=== PATIENT | female | born 1940 | race Caucasian/White ===

== ENCOUNTER → 2018-07-14 15:02 | Outpatient (CLI) | payer MEDICARE, MEDICAID, SELFPAY | PROVIDERS: PCP Internal Medicine Adolescent Medicine; Visit Provider Internal Medicine Adolescent Medicine | DX: E78.5 Hyperlipidemia, unspecified (principal); I10 Essential (primary) hypertension; M81.8 Other osteoporosis without current pathological fracture ==

== ENCOUNTER → 2018-07-15 07:57 | Outpatient (CLI) | payer MEDICARE, MEDICAID, SELFPAY ==
[2018-07-15 09:30] LABS: Anion Gap 11.2 mEq/L (5-15); Blood Urea Nitrogen 9 mg/dL (7-18); Calcium 8.1 mg/dL (8.5-10.1); Carbon Dioxide 29 mmol/L (21.0-32.0); Chloride 108 mmol/L (98-107); Chol/HDL Ratio 1.9 (1-3.5); Cholesterol 123 mg/dL (140-200); Creatinine,Serum 0.52 mg/dL (0.55-1.02); Estimated Glomerular Filt Rate 114 ml/min (>60); GFR (African American) 138 ML/MIN (>60); Glucose 93 mg/dL (74-106); HDL Cholesterol 66 mg/dL (29-89); LDL Cholesterol 52 mg/dL (0-130); Potassium 4.2 mmoL/L (3.5-5.1); Sodium 144 mmol/L (136-145); Triglycerides 27 mg/dL (30-200); VLDL Cholesterol 5 mg/dL (0-40)
[2018-07-17 07:53] LABS: Vitamin D 25 Hydroxy 38.9 ng/mL (30.0-100.0)
== END ==
PROVIDERS: PCP Internal Medicine Adolescent Medicine; Visit Provider Internal Medicine Adolescent Medicine
DX: E78.5 Hyperlipidemia, unspecified (principal); I10 Essential (primary) hypertension; M81.8 Other osteoporosis without current pathological fracture
CPT/HCPCS: 36415; 80048; 80061; 82652

== ENCOUNTER → 2019-01-12 15:51 | Outpatient (CLI) | payer MEDICARE, MEDICAID, SELFPAY ==
[2019-01-12 19:54] LABS: Anion Gap 13.8 mEq/L (5-15); Blood Urea Nitrogen 16 mg/dL (7-18); Calcium 9.2 mg/dL (8.5-10.1); Carbon Dioxide 28 mmol/L (21.0-32.0); Chloride 103 mmol/L (98-107); Estimated Glomerular Filt Rate 81 ml/min (>60); GFR (African American) 98 ML/MIN (>60); Glucose 84 mg/dL (74-106); Potassium 3.8 mmoL/L (3.5-5.1); Sodium 141 mmol/L (136-145)
== END ==
PROVIDERS: Visit Provider Internal Medicine Adolescent Medicine
DX: I10 Essential (primary) hypertension (principal); E78.5 Hyperlipidemia, unspecified
CPT/HCPCS: 36415; 80048

== ENCOUNTER → 2019-04-16 07:34 | Outpatient (CLI) | payer MEDICARE, MEDICAID, SELFPAY ==
[2019-04-16 07:54] LABS: Basophils % 0.6 % (0.1-2.0); Eosinophils # 0.1 K/mm3 (0.0-0.4); Eosinophils % 1.8 % (0.1-12.0); Hematocrit 41.7 % (37.0-47.0); Hemoglobin 13.2 g/dL (12.2-16.2); Lymphocytes # 2.4 K/mm3 (0.7-4.5); Lymphocytes % 34.3 % (10-50); Mean Corpuscular HGB Conc 31.6 g/dL (31.8-35.4); Mean Corpuscular Hemoglobin 27.5 pg (27.0-31.2); Mean Corpuscular Volume 87.1 fl (81-99); Mean Platelet Volume 8.1 fl (7.4-10.4); Monocytes # 0.7 K/mm3 (0.1-1.0); Monocytes % 9.3 % (1.7-9.3); Neutrophils # 3.8 K/mm3 (1.8-7.8); Neutrophils % 54.1 % (37.0-80.0); Platelet Count 240 K/mm3 (142-424); Red Blood Count 4.78 M/mm3 (4.20-5.40); Red Cell Distribution Width 13.7 % (11.5-17.5); White Blood Count 7.1 K/mm3 (4.8-10.8)
[2019-04-16 09:20] LABS: Alanine Aminotransferase 26 U/L (12-78); Albumin Level 3.5 gm/dL (3.4-5.0); Albumin/Globulin Ratio 1.2 (1.1-1.8); Alkaline Phosphatase 51 U/L (46-116); Aspartate Amino Transferase 15 U/L (15-37); Bilirubin,Total 0.5 mg/dL (0.2-1.0); Blood Urea Nitrogen 9 mg/dL (7-18); Calcium 8.9 mg/dL (8.5-10.1); Carbon Dioxide 31 mmol/L (21.0-32.0); Chloride 104 mmol/L (98-107); Cholesterol 122 mg/dL (140-200); Creatinine,Serum 0.62 mg/dL (0.55-1.02); Estimated Glomerular Filt Rate 93 ml/min (>60); GFR (African American) 113 ML/MIN (>60); Globulin 2.9 gm/dl (1.3-3.2); Glucose 93 mg/dL (74-106); HDL Cholesterol 62 mg/dL (29-89); LDL Cholesterol 55 mg/dL (0-130); Sodium 142 mmol/L (136-145); Thyroid Stimulating Hormone 1.46 uIU/ml (0.358-3.740); Total Protein,Serum 6.4 gm/dL (6.4-8.2); Triglycerides 26 mg/dL (30-200); VLDL Cholesterol 5 mg/dL (0-40)
[2019-04-17 08:42] LABS: Vitamin D 25 Hydroxy 38.7 ng/mL (30.0-100.0)
[2019-04-19 08:05] LABS: Vitamin B12 777 pg/mL (232-1245)
== END ==
PROVIDERS: Visit Provider Nurse Practitioner Family
DX: I10 Essential (primary) hypertension (principal); R53.83 Other fatigue
CPT/HCPCS: 36415; 80053; 80061; 82607; 82652; 84443; 85025

== ENCOUNTER → 2019-05-03 06:15 | Outpatient (CLI) | payer MEDICARE, MEDICAID, SELFPAY ==
--- NOTE | 2019-05-03 06:29 | NM_ITS ---
History:chest pain, short of breath, fatigue Procedure: Patient received a 0.4 mg of intravenous Lexiscan, resting heart rate 78 bpm, resting blood pressure 166/93, with Lexiscan maximum heart rate achieve was 110 bpm which is less than 85 % of the maximum predicted heart rate and blood pressure was 110/64. WIth Lexiscan patient denied any complaint of chest pain. Electrocardiogram: Resting electrocardiogram showed sinus rhythm, with Lexiscan there is less than 1.5mm ST segment depression noted from the baseline EKG. The EKG portion of the Lexiscan Myoview is nondiagnostic. Cardias Stress and Resting SPECT images: Cardias Stress and Resting SPECT images were obtained using technetium 99m Myoview 29.7 mCi stress and 10.68 mCi at rest. Gated SPECT further analysis of segmental wall motion and calculation of ejection fraction also done. Cardiac stress and resting SPECT show uniform myocardial activity without segmental perfusion abnormality, the computer derived ejection fraction is over 65% with no regional wall motion abnormality, right ventricle is normal size and contractility Conclusion: 1. The EKG portion of the Lexiscan Myoview is nondiagnostic. 2. No scintigraphic evidence of reversible ischemia seen, computer derived ejection fraction is over 65% with no regional wall motion abnormality, right ventricle is normal size and contractility. 3. Normal Lexiscan Myoview study.
--- NOTE | 2019-05-03 08:44 | HMH.ITSHM ---
Current Home Medications as stated by this patient Renzo Curry or pharmacy services representative. [] lisinopril atorvastatin ranitadine hcl nifidipine
== END ==
PROVIDERS: PCP Internal Medicine Adolescent Medicine; Visit Provider Internal Medicine Adolescent Medicine
DX: R07.9 Chest pain, unspecified (principal); I20.8 Other forms of angina pectoris
CPT/HCPCS: 78452; 93017; A9502; J2785

== ENCOUNTER → 2019-09-03 14:04 | Outpatient (CLI) | payer MEDICARE, MEDICAID, SELFPAY ==
--- NOTE | 2019-09-03 14:07 | XR_ITS ---
PROCEDURE: XR DEXA AXIAL SKELETON CLINICAL HISTORY: OSTEOPAROSIS COMPARISON: No exams were available for comparison FINDINGS: The L1-L4 density is 0.914 grams/centimeters sq with a T-score of -2.2 consistent with osteopenia. Mean hip density is 0.669 grams/centimeters sq with a T-score -2.7 consistent with osteoporosis. The mean hip density has increased by 3.7 percent and the mean hip density has increased by 3.8 percent. IMPRESSION: Osteoporosis with high fracture risk. Treatment advised. Suggest follow-up exam August 2020 Dictated by: Abiodun Pickett MD 09/04/2019 16:56 Electronically signed by Abiodun Pickett MD in [place] 09/04/2019 16:56
== END ==
PROVIDERS: PCP Internal Medicine Adolescent Medicine; Visit Provider Internal Medicine Adolescent Medicine
DX: M81.0 Age-related osteoporosis without current pathological fracture (principal)
CPT/HCPCS: 77080

== ENCOUNTER → 2020-04-07 07:08 | Outpatient (CLI) | payer MEDICARE, MEDICAID, SELFPAY ==
[2020-04-07 07:48] LABS: Basophils # 0.1 K/mm3 (0-0.2); Basophils % 0.8 % (0.1-2.0); Eosinophils # 0.1 K/mm3 (0.0-0.4); Eosinophils % 1.8 % (0.1-12.0); Hematocrit 40.7 % (37.0-47.0); Hemoglobin 14.2 g/dL (12.2-16.2); Lymphocytes # 2.5 K/mm3 (0.7-4.5); Lymphocytes % 33.2 % (10-50); Mean Corpuscular HGB Conc 34.9 g/dL (31.8-35.4); Mean Corpuscular Hemoglobin 30.7 pg (27.0-31.2); Mean Corpuscular Volume 88.2 fl (81-99); Monocytes # 0.7 K/mm3 (0.1-1.0); Monocytes % 8.7 % (1.7-9.3); Neutrophils # 4.2 K/mm3 (1.8-7.8); Neutrophils % 55.5 % (37.0-80.0); Platelet Count 247 K/mm3 (142-424); Red Blood Count 4.62 M/mm3 (4.20-5.40); Red Cell Distribution Width 13.7 % (11.5-17.5); White Blood Count 7.5 K/mm3 (4.8-10.8)
[2020-04-07 08:57] LABS: Chloride 104 mmol/L (98-107)
[2020-04-07 08:58] LABS: Potassium 4.7 mmoL/L (3.5-5.1); Sodium 140 mmol/L (136-145)
[2020-04-07 09:00] LABS: Blood Urea Nitrogen 13 mg/dl (7-17); Estimated Glomerular Filt Rate 119 ml/min (>60); GFR (African American) 144 ML/MIN (>60)
[2020-04-07 09:01] LABS: Alanine Aminotransferase 17 U/L (12-78); Albumin Level 4.1 g/dl (3.5-5.0); Albumin/Globulin Ratio 1.6 (1.1-1.8); Alkaline Phosphatase 44 U/L (38-126); Anion Gap 11.7 mEq/L (5-15); Aspartate Amino Transferase 25 U/L (14-36); Bilirubin,Total 0.7 mg/dl (0.2-1.3); Carbon Dioxide 29 mmol/L (22.0-30.0); Globulin 2.5 g/dL (1.3-3.2); Glucose 97 mg/dl (74-100); Total Protein,Serum 6.6 g/dl (6.3-8.2)
[2020-04-08 06:38] LABS: Vitamin B12 531 pg/mL (232-1245)
== END ==
PROVIDERS: Visit Provider Internal Medicine Adolescent Medicine
DX: I10 Essential (primary) hypertension (principal); R53.82 Chronic fatigue, unspecified
CPT/HCPCS: 36415; 80053; 82607; 85025

== ENCOUNTER → 2020-04-09 10:44 | Outpatient (CLI) | payer MEDICARE, MEDICAID, SELFPAY ==
--- NOTE | 2020-04-09 11:03 | CA_ITS ---
APPROVED REPORT Filtering Machine Tender: CT Laterality: Bilateral Study Quality: Fair Indications: dizziness Doppler Spectral Velocity Analysis ECA (R) 83.80/12.00 cm/s ECA (L) 133.90/34.70 cm/s dICA (R) 121.60/28.90 cm/s dICA (L) 130.00/29.90 cm/s Evelyn (R) 129.10/30.80 cm/s Evelyn (L) 67.80/17.90 cm/s pICA (R) 74.50/27.40 cm/s pICA (L) 59.10/9.60 cm/s dCCA (R) 63.30/13.70 cm/s dCCA (L) 77.70/15.40 cm/s pCCA (R) 105.40/12.90 cm/s pCCA (L) 94.30/15.70 cm/s Vert (R) 53.50/13.30 cm/s Vert (L) 60.40/14.80 cm/s ICA/CCA 2.00 ICA/CCA 1.70 Findings Duplex evaluation demonstrates stenosis of the right proximal internal carotid artery in the range of 20-49% with PSV <140 cm/sec, EDV <100 cm/sec, and IC/CC Ratio <4.0, lower end of scale. Duplex evaluation demonstrates stenosis of the left proximal internal carotid artery in the range of 20-49% with PSV <140 cm/sec, EDV <100 cm/sec, and IC/CC Ratio <4.0, lower end of scale. Duplex evaluation demonstrates antegrade flow of the bilateral Vertebral Arteries. Tortuous bilateral arteries. cysts noted in thyroid. Conclusion Duplex evaluation demonstrates stenosis of the right proximal internal carotid artery in the range of 20-49% with PSV <140 cm/sec, EDV <100 cm/sec, and IC/CC Ratio <4.0, lower end of scale. Duplex evaluation demonstrates stenosis of the left proximal internal carotid artery in the range of 20-49% with PSV <140 cm/sec, EDV <100 cm/sec, and IC/CC Ratio <4.0, lower end of scale. Duplex evaluation demonstrates antegrade flow of the bilateral Vertebral Arteries. Electronically signed by : Abiodun Pickett MD 04/09/2020 15:37:25
== END ==
PROVIDERS: PCP Internal Medicine Adolescent Medicine; Visit Provider Internal Medicine Adolescent Medicine
DX: R42 Dizziness and giddiness (principal)
CPT/HCPCS: 93880

== ENCOUNTER 2020-05-15 17:00 | Outpatient (RCR) | payer MEDICARE, MEDICAID, SELFPAY ==
--- NOTE | 2020-04-22 18:29 | HMH.PTOPEV ---
PT Outpatient Evaluation Rehab PT Outpatient Evaluation Start: 04/22/20 17:04 Freq: Status: Active Protocol: Document 04/22/20 18:09 RONA (Rec: 04/22/20 18:28 ARTAARON [id number]) Electronically Signed By Harish Gonzalez PT 04/22/20 18:09 Outpatient Therapy Subjective History Subjective History This is the initial Physical therapy evaluation for Renzo Curry. Pt is a 79 y/o female referred to PT for c/o dysequilibrium. Pt reports she has long hx of c/o dizziness and motion sickness . Pt reports that prior to 1 year ago she only had intermittant c/o dizziness . Pt reports ~ 1 year ago her c /o balance began to be constant. Pt reports she is pretty much always dizzy . Pt reports she began taking new BP medicine ~ 1 year ago and since then her c/o have increased. Pt reports she is beginning to have severe anxiety due to chronic dizziness. Chief Complaint Other Symptom Type Other Symptoms Relieved By Nothing Symptoms Aggravated By Bending/Stooping,Physical Activity,Twisting Prior Functional Limitations None Current Functional Limitations Recreation Activity,Walking, Balance Symptom Description Constant but Variable Balance Eval Chief Complaint Did you feel dizzy, unsteady or faint? Yes Current Functional Limitations Comment difficulty w/ ADL's and rec Act Hx of Falls Hx Falls No Gait/Posture Asssessment General Gait Observation Wide Based Gait,Shuffling Step Assistive Devices None / NA Level of Transfer Assist Standby Assistance Nystagmus Nystagmus Presence None Oculomotor Gaze Oculomotor Gaze Nml: Vergence Smooth Pursuit Saccades Cover/Uncover Cross Cover Abn: VOR Cancellation Outpatient Therapy Assessment Impairments Problems/Impairmments Impaired Gait Pattern,Impaired Walking,Impaired Shower/
== END 2020-05-15 17:57 | disposition home or self-care (01) ==
LOC: PT 17:00
PROVIDERS: PCP Internal Medicine Adolescent Medicine; Visit Provider Internal Medicine Adolescent Medicine
DX: R42 Dizziness and giddiness (principal)
CPT/HCPCS: 97110; 97112; 97163

== ENCOUNTER → 2020-06-05 17:10 | Outpatient (CLI) | payer MEDICARE, MEDICAID, SELFPAY ==
[2020-06-05 18:12] LABS: Blood Urea Nitrogen 14 mg/dl (7-17); Estimated Glomerular Filt Rate 96 ml/min (>60); GFR (African American) 116 ML/MIN (>60)
== END ==
PROVIDERS: Visit Provider Internal Medicine Adolescent Medicine
DX: R42 Dizziness and giddiness (principal); I10 Essential (primary) hypertension; H90.5 Unspecified sensorineural hearing loss
CPT/HCPCS: 36415; 82565; 84520

== ENCOUNTER → 2020-06-06 08:58 | Outpatient (CLI) | payer MEDICARE, MEDICAID, SELFPAY ==
--- NOTE | 2020-06-06 09:01 | CT_ITS ---
Procedure: CT ANGIO HEAD CLINICAL HISTORY: DIZZINESS dizziness, headaches x several months 100ml optiray 350, 40ml saline no prior COMPARISON: No exams were available for comparison TECHNIQUE: IV Contrast: 100ml Optiray 350 Axial images obtained with sagittal and coronal reformats. All CT scans at the facility use one or more dose reduction, viz: automated exposure control, ma/kV adjustment per patient size (including targeted exams where dose is matched to indication, i.e. head), or iterative reconstruction technique. FINDINGS: No aneurysm, arteriovenous malformation, or major intracranial occlusive process is evident. There is persistent origin of the right posterior cerebral artery as a normal variant. No midline shift, mass effect, hydrocephalus, or enhancing lesion evident. No evidence sinus thrombosis. IMPRESSION: Negative CTA of the brain. Dictated by: Abiodun Pickett MD 06/07/2020 08:01 Abiodun Pickett MD in [place] 06/07/2020 08:01
== END ==
PROVIDERS: PCP Internal Medicine Adolescent Medicine; Visit Provider Internal Medicine Adolescent Medicine
DX: R42 Dizziness and giddiness (principal)
CPT/HCPCS: 70496; Q9967

== ENCOUNTER 2021-01-01 15:32 | Emergency (ER) | payer MEDICARE, MEDICAID, SELFPAY ==
[2021-01-01 15:45] VITALS: BP 141/72; PULSE 91; RESP 21; TEMP 37.3; O2SAT 95; BMI 29.2
--- NOTE | 2021-01-01 16:14 | HMH.EDUTC ---
[facility] [place] Impression: Strep [place] Disposition: Home, Self-Care Condition on Discharge: Good Instructions: DI for Strep Throat, Strep Throat, DI for Headache, DI for Fever (Symptom) -- Adult Additional Instructions: *Monitor Temp, Over the counter Motrin or Tylenol as directed/as needed Tylenol every 4 hours and Motrin every 6 hours (as long as your family doctor has told you that you can take it) for fever or pain. and straight to ER if unable to lower temp less than 101.0 after medication given *Warm salt water gargles may help to soothe the throat *Throat Lozenges *Warm fluids like tea with honey may help to soothe the throat *Sleep elevated *Humidifier/Vaporizer If you did not take Penicillin shot or was unable to, start taking antibiotic immediately and make sure that you take it for the FULL length of time although you should start to feel better in 24-48 hours *change toothbrush and toothpaste 24-48 hours after starting to take antibiotics so you do not reinfect yourself Monitor Temp. Tylenol and/or Ibuprofen as needed. ER if fever is no less than 101 despite alternating Tylenol and Ibuprofen * Encourage fluids, water, Gatorade, powerade, pedialyte if /toddler/or child *Cold fluids, popsicles and ice cream may feel good on his throat Follow up IMMEDIATELY for new or worsening symptoms or no Noticeable improvement over the next 48-72 hours. 911 for difficulty breathing or swallowing You were tested for today for COVID19 your test result should be back in the next 24-48 hours, you may call to the [facility] to see if your test results are back in the next 48 hours [phone] [facility] hours are 9am-9pm You was given a handout with instructions for Self Quarantine and Self isolation for while you wait on test results and what to do if they are positive If you are positive the Health Dept will be contacting you also Prescriptions: Azithromycin [Z-Star 250mg Tab] 250 mg PO DIRECTED #6 tab Transmission Status: Pending to Clinic [facility] Referrals: Marko Rocha MD [Primary Care Provider] - As needed Time of Disposition: 16:31 Medical Decision Making - Taran Inquiry Pt receiving controlled substance: No Taran was queried for this patient: No Vital Signs: 01/01/21 15:45 Temperature 99.2 F Temperature Source Oral Pulse Rate [Right Brachial] 91 H Respiratory Rate 21 Blood Pressure [Right Arm] 141/72 H Blood Pressure Mean [Right Arm] 95 Blood Pressure Source [Right Arm] Automatic Cuff Blood Pressure Position [Right Arm] Sitting 02 Sat by Pulse Oximetry 95 Oxygen Delivery Method Room Air - Lab Data Lab results reviewed: Yes: I reviewed the patient's lab results. Orders (Tests/Meds): ORDERS Category Date Time Status Covid-19 Nasal PCR ([facility]) Routine Lab 01/01/21 15:55 [place] [facility] [place] - General Stated complaint: Covid tests; migraine Time Seen by Provider: 01/01/21 16:14 Mode of Arrival: Ambulatory Source of Information: Patient Limitations: No Limitations Description of Symptoms (Recalled from Triage Doc. by RN): PATIENT C/O COUGH, FEVER, RUNNY NOSE, AND HEADACHE SINCE YESTERDAY. HEENT Symptoms (Recalled from RN notes): Yes Resp Symptoms (Recalled from RN notes): No Skin Symptoms (Recalled from RN notes): No MS Symptoms (Recalled from RN notes): No Functional Status (Recalled from RN notes): WNL - History of Present Illness Provider Complaint: Patient states that she has been having sore throat, sinus pressure, headache and low grade fever for several days States that she just hasnt been feeling well Daughter was concerned and wanted her to come in and get tested for flu and COVID States that she has history of migraine headache and yesterday she had a headache and took some Excedrin migraine and it helped with her headache State that today her throat was still hurting and felt scratchy and over all feeling achy so she came in to get tested - Related Data Home Medica
[2021-01-01 16:24] LABS: UTC Influenza A Antigen Negative (Negative)
[2021-01-01 16:24] LABS: UTC Strep Screen (Rapid) Positive (Negative)
[2021-01-01 16:25] LABS: UTC Influenza B Antigen Negative (Negative)
[2021-01-01 16:28] VITALS: BP 141/72; PULSE 91; RESP 21; TEMP 37.3; O2SAT 95
== END 2021-01-01 16:30 | disposition home or self-care (01) ==
PROVIDERS: Emergency Provider Nurse Practitioner; PCP Internal Medicine Adolescent Medicine
DX: J02.0 Streptococcal pharyngitis (principal); Z20.822 Contact with and (suspected) exposure to COVID-19; G43.709 Chronic migraine without aura, not intractable, without status migrainosus; I10 Essential (primary) hypertension; Z79.899 Other long term (current) drug therapy
CPT/HCPCS: 87804; 87880; 99202; G0463; U0003

== ENCOUNTER → 2021-03-02 07:23 | Outpatient (CLI) | payer MEDICARE, MEDICAID, SELFPAY ==
[2021-03-02 08:34] LABS: Basophils # 0.1 K/mm3 (0-0.2); Basophils % 0.8 % (0.1-2.0); Eosinophils # 0.1 K/mm3 (0.0-0.4); Eosinophils % 1.7 % (0.1-12.0); Hematocrit 33.6 % (37.0-47.0); Hemoglobin 13.9 g/dL (12.2-16.2); Lymphocytes # 2.9 K/mm3 (0.7-4.5); Lymphocytes % 35.5 % (10-50); Mean Corpuscular Hemoglobin 31.3 pg (27.0-31.2); Mean Corpuscular Volume 75.6 fl (81-99); Mean Platelet Volume 19.2 fl (7.4-10.4); Monocytes # 0.8 K/mm3 (0.1-1.0); Monocytes % 9.6 % (1.7-9.3); Neutrophils # 4.3 K/mm3 (1.8-7.8); Neutrophils % 52.4 % (37.0-80.0); Platelet Count 143 K/mm3 (142-424); Red Blood Count 4.45 M/mm3 (4.20-5.40); White Blood Count 8.1 K/mm3 (4.8-10.8)
[2021-03-02 09:03] LABS: Mean Corpuscular HGB Conc 34.5 g/dL (31.8-35.4); Red Cell Distribution Width 17.2 % (11.5-17.5)
[2021-03-02 09:31] LABS: Chloride 103 mmol/L (98-107); Potassium 4.2 mmoL/L (3.5-5.1); Sodium 139 mmol/L (136-145)
[2021-03-02 09:34] LABS: Alanine Aminotransferase 12 U/L (12-78); Albumin Level 4.3 g/dl (3.5-5.0); Albumin/Globulin Ratio 1.6 (1.1-1.8); Alkaline Phosphatase 47 U/L (38-126); Anion Gap 10.2 mEq/L (5-15); Aspartate Amino Transferase 26 U/L (14-36); Bilirubin,Total 0.9 mg/dl (0.2-1.3); Blood Urea Nitrogen 15 mg/dl (7-17); Carbon Dioxide 30 mmol/L (22.0-30.0); Estimated Glomerular Filt Rate 96 ml/min (>60); GFR (African American) 116 ML/MIN (>60); Globulin 2.7 g/dL (1.3-3.2); Glucose 95 mg/dl (74-100)
[2021-03-02 11:15] LABS: 25-OH Vitamin D, Total 33.3 ng/mL (30-100)
== END ==
PROVIDERS: Visit Provider Nurse Practitioner Family
DX: I10 Essential (primary) hypertension (principal); M81.8 Other osteoporosis without current pathological fracture
CPT/HCPCS: 36415; 80053; 82306; 85025

== ENCOUNTER → 2021-09-21 19:38 | Outpatient (CLI) | payer MEDICARE, MEDICAID, SELFPAY | PROVIDERS: PCP Nurse Practitioner Family; Visit Provider Nurse Practitioner | DX: U07.1 COVID-19 (principal) | CPT/HCPCS: C9803; U0003; U0005 ==

== ENCOUNTER 2021-10-20 06:48 | Day surgery (SDC) | payer MEDICARE, MEDICAID, SELFPAY ==
[2021-10-15 14:21] VITALS: BMI 27.4
[2021-10-20] VITALS (7 sets, daily range): BP systolic 145–182; BP diastolic 67–82; PULSE 58–70; RESP 16–18; TEMP 36.1–36.3; O2SAT 84–99
== END 2021-10-20 08:30 | disposition home or self-care (01) ==
LOC: OR 06:50
PROVIDERS: PCP Nurse Practitioner Family; Visit Provider Ophthalmology
DX: H25.811 Combined forms of age-related cataract, right eye (principal); Z96.1 Presence of intraocular lens; H02.831 Dermatochalasis of right upper eyelid; H02.834 Dermatochalasis of left upper eyelid; F32.A Depression, unspecified; K21.9 Gastro-esophageal reflux disease without esophagitis; I10 Essential (primary) hypertension; Z85.828 Personal history of other malignant neoplasm of skin; Z79.899 Other long term (current) drug therapy; Z82.49 Family history of ischemic heart disease and other diseases of the circulatory system
CPT/HCPCS: 66984; V2632

== ENCOUNTER → 2022-04-05 09:09 | Outpatient (CLI) | payer MEDICARE, MEDICAID, SELFPAY ==
--- NOTE | 2022-04-05 09:22 | XR_ITS ---
FINAL REPORT TECHNIQUE: Bone densitometry calculations of the lumbar spine and left hip were obtained. CLINICAL HISTORY: . POST MENOPAUSAL SCREENING COMPARISON: September 03, 2019 FINDINGS: DEXA BONE DENSITY AXIAL SKELETON Using L1-4, the bone mineral density of the spine is 0.874 g/cm2, corresponding to T-score of -1.6. Was previously 0.914 corresponding to a T-score of -2.2. Using the left hip, the bone mineral density of the femoral neck is 0.651 g/cm2, corresponding to a T-score of -2.4. Was previously 0.733 corresponding to a T-score of -2.2. Using the right hip, the bone mineral density of the femoral neck is 0.614 g/cm2, corresponding to a T-score of -2.1. Was previously 0.674 corresponding to a T-score of -2.6. NOTE: T-score: Standard deviation compared with peak bone mass of young adult mean. *Following the recommendations of the International Society of Bone densitometry, classification of hip BMD is based on the lower of two T-scores; total hip or femoral neck. IMPRESSION: Diminished bone mineral density of the lumbar spine and both hips consistent with osteopenia. FRAX 10 year fracture risk is 30 % for major osteoporotic fracture based on calculations for the right hip. Reviewed, Interpreted and Dictated by Chente Mays MD Transcribed by Jessica Owens Authenticated and . [facility]
== END ==
PROVIDERS: PCP Nurse Practitioner Family; Visit Provider Nurse Practitioner Family
DX: Z78.0 Asymptomatic menopausal state (principal); M85.89 Other specified disorders of bone density and structure, multiple sites
CPT/HCPCS: 77080

== ENCOUNTER → 2022-09-13 09:52 | Outpatient (CLI) | payer MEDICARE, MEDICAID, SELFPAY ==
[2022-09-13 10:07] LABS: Microscopic, Urine URINE MICROSCOPIC (MICROSCOPIC)
[2022-09-13 10:30] LABS: Basophils # 0.1 K/mm3 (0-0.2); Eosinophils # 0.1 K/mm3 (0.0-0.4); Eosinophils % 1.1 % (0.1-12.0); Hematocrit 45.4 % (37.0-47.0); Hemoglobin 15.3 g/dL (12.2-16.2); Lymphocytes # 1.8 K/mm3 (0.7-4.5); Lymphocytes % 24.4 % (10-50); Mean Corpuscular HGB Conc 33.6 g/dL (31.8-35.4); Mean Corpuscular Hemoglobin 29.7 pg (27.0-31.2); Mean Corpuscular Volume 88.6 fl (81-99); Mean Platelet Volume 9.2 fl (7.4-10.4); Monocytes # 0.8 K/mm3 (0.1-1.0); Monocytes % 10.5 % (1.7-9.3); Neutrophils # 4.7 K/mm3 (1.8-7.8); Platelet Count 241 K/mm3 (142-424); Red Blood Count 5.13 M/mm3 (4.20-5.40); Red Cell Distribution Width 13.7 % (11.5-17.5); White Blood Count 7.5 K/mm3 (4.8-10.8)
[2022-09-13 10:40] LABS: Appearance,Urine CLEAR (Clear); Bilirubin,Urine Negative (Negative); Blood, Urine Negative (Negative); Color,Urine YELLOW (Yellow); Glucose,Urine (UA) Negative (Negative); Ketones,Urine Negative (Negative); Leukocyte Esterase,Urine Negative (Negative); Nitrate,Urine Negative (Negative); Protein,Urine Negative (Negative); Urobilinogen,Urine 0.2 EU/dl (0.2)
[2022-09-13 10:51] LABS: Alanine Aminotransferase 18 U/L (12-78); Albumin Level 4.4 g/dl (3.5-5.0); Albumin/Globulin Ratio 1.8 (1.1-1.8); Alkaline Phosphatase 55 U/L (38-126); Anion Gap 12.7 mEq/L (5-15); Aspartate Amino Transferase 27 U/L (14-36); Bilirubin,Total 0.7 mg/dl (0.2-1.3); Blood Urea Nitrogen 10 mg/dl (7-17); Calcium 9.4 mg/dl (8.4-10.2); Carbon Dioxide 28 mmol/L (22.0-30.0); Chloride 103 mmol/L (98-107); Estimated Glomerular Filt Rate 96 ml/min (>60); GFR (African American) 116 ML/MIN (>60); Globulin 2.5 g/dL (1.3-3.2); Glucose 92 mg/dl (74-100); Magnesium 1.8 mg/dl (1.6-2.3); Potassium 3.7 mmoL/L (3.5-5.1); Sodium 140 mmol/L (136-145); Total Protein,Serum 6.9 g/dl (6.3-8.2)
[2022-09-13 10:56] LABS: Bacteria,Urine Trace /lpf; WBC,Urine Occasional #/hpf (0-3)
[2022-09-13 11:20] LABS: Thyroid Stimulating Hormone 0.76 uIU/mL (0.465-4.68)
== END ==
PROVIDERS: PCP Nurse Practitioner Family; Visit Provider Nurse Practitioner Family
DX: R46.89 Other symptoms and signs involving appearance and behavior (principal)
CPT/HCPCS: 36415; 80053; 81001; 83735; 84443; 85025

== ENCOUNTER → 2022-09-17 09:04 | Outpatient (CLI) | payer MEDICARE, MEDICAID, SELFPAY ==
--- NOTE | 2022-09-17 09:05 | MR_ITS ---
FINAL REPORT CLINICAL HISTORY: BEHAVIORAL CHANGE, HEADACHE, HYPERTENSION, dizziness FINDINGS: Multiplanar MR imaging of the brain was performed without contrast. There is mild age-appropriate atrophy. There are scattered foci of increased T2 signal in the cerebral white matter that have a nonspecific appearance but likely represent mild chronic ischemic/gliotic changes. There is no evidence of intracranial hemorrhage or mass. No abnormal ventricular dilatation is identified. No abnormal extra-axial fluid collection is seen. There is a focal area of restricted diffusion in the anterior right thalamus extending to the right cerebral peduncle. Focus measures 8 mm in superior to inferior extension consistent with focal acute lacunar infarct. Normal major vessel vascular flow voids are seen. There is mild mucosal thickening of the ethmoid air cells. IMPRESSION: Acute lacunar infarct as detailed above. Lainey Jae, was notified of findings on 09/17/2022 at 10:23 a.m. Reviewed, Interpreted and Dictated by Chris Mata III, MD Transcribed by Jelena Figueroa Authenticated and . [facility]
== END ==
PROVIDERS: PCP Nurse Practitioner Family; Visit Provider Nurse Practitioner Family
DX: R51.9 Headache, unspecified (principal); I10 Essential (primary) hypertension; R46.89 Other symptoms and signs involving appearance and behavior
CPT/HCPCS: 70551

== ENCOUNTER → 2022-09-21 10:11 | Outpatient (CLI) | payer MEDICARE, MEDICAID, SELFPAY ==
--- NOTE | 2022-09-21 | CA_ITS ---
FINAL REPORT TECHNIQUE: Color Doppler, duplex Doppler and faith scale sonography of the bilateral neck arterial vasculature was performed. Velocities were measured in the carotid arteries. Stenosis evaluation based on the validated velocity criteria. CLINICAL HISTORY: recent stroke, dizziness, HTN, hyperlipidemia FINDINGS: The peak systolic velocity of the right common carotid artery is 104 cm/s. The peak systolic velocity of the right internal carotid artery is 116 cm/s and end diastolic velocity 28 cm/s. The ICA/CCA ratio is 1.1. A mild amount of plaque is present. The right external carotid artery is patent. The right vertebral artery is patent with antegrade flow. The peak systolic velocity of the left common carotid artery is 119 cm/s. The peak systolic velocity of the left internal carotid artery is 145 cm/s and end diastolic velocity 33 cm/s. The ICA/CCA ratio is 1.2. A mild amount of plaque is present. The left external carotid artery is patent.The left vertebral artery is patent with antegrade flow. IMPRESSION: Less than 50% bilateral carotid stenoses. Bilateral patent vertebral arteries with antegrade flow. If indicated, CTA or MRA could further evaluate. Reviewed, Interpreted and Dictated by Chris Mata III, MD Transcribed by Jessica Owens Authenticated and . [facility]
== END ==
PROVIDERS: PCP Nurse Practitioner Family; Visit Provider Nurse Practitioner Family
DX: I63.00 Cerebral infarction due to thrombosis of unspecified precerebral artery (principal); R42 Dizziness and giddiness
CPT/HCPCS: 93225; 93226; 93880

== ENCOUNTER 2022-09-29 07:53 | Outpatient (RCR) | payer MEDICARE, MEDICAID, SELFPAY ==
--- NOTE | 2022-09-29 11:34 | HMH.SLAPHASI ---
Speech & Language Evaluation Speech/Language Aphasia Evaluation Start: 09/29/22 10:42 Freq: once Status: Complete Protocol: Document 09/29/22 10:42 ZACH (Rec: 09/29/22 11:33 ZACH [id number]) Aphasia Assessment/Goals/Plan Assessment Date of Evaluation: 09/29/22 Evaluation Type Initial Certification Assessment/Problems s/p CVA Does Patient Qualify for Service No Qualify/Failure Comment Based on the cognitive and language assessments given today, pt does not require skilled speech therapy services at this time. Plan Pt/Guardian verbally ack understanding Yes of dx/prognosis/goals Pt/Guardian verbally ack understanding Yes of/consent to tx prog G -code Required No Education Instructions provided Assessment results and recommendations discussed with pt and daughter, both of whom expressed understanding. Pt/Caregiver Able to Recall Information Able to recall/restate Reinforcement needed No Speech & Language HPI History Present Illness Description of Patient Problem Ms. Curry is an 82 y.o. woman presenting to [facility] rehab after a CVA that occurred in August 2022. She reports doing well but having some trouble with memory. Pt/Caregiver Concerns Memory Rehab Services Assessed Speech therapy Is this evaluation r/t stroke? No Aphasia Evaluations Communication Auditory Comprehension Yes: Word Level Sentences Following Directions Paragraph Conversation Reading Comprehension Yes: Letter Naming Word Naming Sentences Paragraphs Verbal Expressive Language Yes: Automatic Speech Completing Sentences Repetition Abilities Word Level Naming Naming Actions/Objects Sentence Level Defining Words Written Language Yes: Copy Shapes Copy Words Sentence Writing Attending/Orientation/Memory Yes: Delayed Recall W/ Interference
== END 2022-09-29 07:55 | disposition home or self-care (01) ==
LOC: ST 07:53
PROVIDERS: PCP Nurse Practitioner Family; Visit Provider Nurse Practitioner Family
DX: R26.9 Unspecified abnormalities of gait and mobility; R47.89 Other speech disturbances; I63.9 Cerebral infarction, unspecified
CPT/HCPCS: 92523

== ENCOUNTER → 2022-10-07 10:06 | Outpatient (CLI) | payer MEDICARE, MEDICAID, SELFPAY | PROVIDERS: PCP Nurse Practitioner Family; Visit Provider Nurse Practitioner Family | DX: I44.0 Atrioventricular block, first degree (principal); I63.9 Cerebral infarction, unspecified; G45.9 Transient cerebral ischemic attack, unspecified | CPT/HCPCS: 93270 ==

== ENCOUNTER 2022-11-05 08:00 | Outpatient (RCR) | payer MEDICARE, MEDICAID, SELFPAY | END 2022-11-05 08:05 | disposition home or self-care (01) | LOC: PT 08:00 | PROVIDERS: PCP Nurse Practitioner Family; Visit Provider Nurse Practitioner Family | DX: I63.9 Cerebral infarction, unspecified (principal); R26.9 Unspecified abnormalities of gait and mobility; R47.89 Other speech disturbances | CPT/HCPCS: 97110; 97112; 97163; 97530 ==

== ENCOUNTER → 2023-01-11 08:54 | Outpatient (POV) | payer MEDICARE, MEDICAID, SELFPAY | PROVIDERS: Visit Provider Dermatology | DX: Z00.00 Encounter for general adult medical examination without abnormal findings (principal) ==

== ENCOUNTER 2023-12-09 09:37 | Outpatient (CLI) | payer MEDICARE, MEDICAID, SELFPAY ==
[2023-12-09 10:03] LABS: Basophils # 0.1 K/mm3 (0-0.2); Eosinophils # 0.1 K/mm3 (0.0-0.4); Eosinophils % 1.3 % (0.1-12.0); Hematocrit 42.8 % (37.0-47.0); Hemoglobin 13.6 g/dL (12.2-16.2); Lymphocytes # 2.3 K/mm3 (0.7-4.5); Lymphocytes % 33.7 % (10-50); Mean Corpuscular HGB Conc 31.9 g/dL (31.8-35.4); Mean Platelet Volume 8.8 fl (7.4-10.4); Monocytes # 0.9 K/mm3 (0.1-1.0); Monocytes % 12.8 % (1.7-9.3); Neutrophils # 3.5 K/mm3 (1.8-7.8); Neutrophils % 51.3 % (37.0-80.0); Platelet Count 218 K/mm3 (142-424); Red Blood Count 4.55 M/mm3 (4.20-5.40); Red Cell Distribution Width 15.4 % (11.5-17.5); White Blood Count 6.8 K/mm3 (4.8-10.8)
[2023-12-09 10:34] LABS: Chloride 105 mmol/L (98-107); Potassium 3.4 mmoL/L (3.5-5.1); Sodium 140 mmol/L (136-145)
[2023-12-09 10:36] LABS: Blood Urea Nitrogen 10 mg/dl (7-17); Estimated Glomerular Filt Rate 118 ml/min (>60); GFR (African American) 143 ML/MIN (>60)
[2023-12-09 10:37] LABS: Alanine Aminotransferase 18 U/L (12-78); Albumin/Globulin Ratio 1.7 (1.1-1.8); Alkaline Phosphatase 56 U/L (38-126); Anion Gap 7.4 mEq/L (5-15); Aspartate Amino Transferase 31 U/L (14-36); Bilirubin,Total 0.7 mg/dl (0.2-1.3); Calcium 8.9 mg/dl (8.4-10.2); Carbon Dioxide 31 mmol/L (22.0-30.0); Cholesterol 157 mg/dl (140-200); Globulin 2.3 g/dL (1.3-3.2); Glucose 96 mg/dl (74-100); Total Protein,Serum 6.3 g/dl (6.3-8.2); Triglycerides 58 mg/dl (30-150); VLDL Cholesterol 12 mg/dL (0-40)
[2023-12-09 10:48] LABS: Direct LDL Cholesterol 67.47 mg/dL (100-129)
[2023-12-09 14:20] LABS: 25-OH Vitamin D, Total 47.2 ng/mL (30-100)
[2023-12-09 14:26] LABS: Chol/HDL Ratio 2.8 (1-3.5); HDL Cholesterol 56 mg/dl (40-60)
== END 2023-12-09 23:59 ==
LOC: LAB 09:39
PROVIDERS: PCP Nurse Practitioner Family; Visit Provider Nurse Practitioner Family
DX: I10 Essential (primary) hypertension (principal); M81.8 Other osteoporosis without current pathological fracture; Z86.73 Personal history of transient ischemic attack (TIA), and cerebral infarction without residual deficits
CPT/HCPCS: 36415; 80053; 80061; 82306; 85025

== ENCOUNTER 2024-05-07 08:40 | Outpatient (CLI) | payer MEDICARE, MEDICAID, SELFPAY ==
--- NOTE | 2024-05-07 08:46 | XR_ITS ---
FINAL REPORT TECHNIQUE: Bone densitometry calculations of the lumbar spine and left hip were obtained. CLINICAL HISTORY: SCREENING FINDINGS: Using L1-4, the bone mineral density of the spine is 0.86 g/cm2, corresponding to T-score of -1.6. Using the left hip, the bone mineral density of the femoral neck is 0.63 g/cm2, corresponding to a T-score of -2.5. Using the right hip, the bone mineral density of the femoral neck is 0.7 g/cm2, corresponding to a T-score of -1.8. NOTE: T-score: Standard deviation compared with peak bone mass of young adult mean. *Following the recommendations of the International Society of Bone densitometry, classification of hip BMD is based on the lower of two T-scores; total hip or femoral neck. IMPRESSION: Low bone density of the right hip and spine. Osteoporosis of the left hip. Reviewed, Interpreted and Dictated by Chris Mata III, MD Transcribed by Keysha Flores Authenticated and . [facility]
== END 2024-05-07 23:59 | disposition home or self-care (01) ==
LOC: RAD 08:41
PROVIDERS: PCP Nurse Practitioner Family; Visit Provider Nurse Practitioner Family
DX: M81.0 Age-related osteoporosis without current pathological fracture (principal); Z78.0 Asymptomatic menopausal state
CPT/HCPCS: 77080